=== PATIENT | female | born 1970 | race Caucasian/White ===

== ENCOUNTER 2019-02-07 13:29 | Emergency (ER) | payer MEDICAID, OTHER ==
[~2019-02-07] VITALS: Ht 167.6 cm; Wt 122.5 kg
[2019-02-07 13:50] VITALS: BP 142/86
[2019-02-07] MEDS ORDERED: LIDOCAINE 1% HCL (LOCAL ANESTH.) INJ 20ML MDV IJ ONE (15:30)
== END 2019-02-07 16:02 | disposition home or self-care (01) ==
LOC: ER 13:39
DX: L91.8 Other hypertrophic disorders of the skin (principal)
CPT/HCPCS: 11200; 99284; J2001